=== PATIENT | female | born 1985 | race Caucasian/White ===

== ENCOUNTER 2021-10-20 02:05 | Emergency (ER) | payer OTHER ==
[~2021-10-20 02:05] MED LIST: CELEBREX100 MG PO; CYCLOBENZAPRINE10 MG PO
[2021-10-20] MEDS ORDERED: ENDOCET 5-3251 EACH PO (04:00)
[2021-10-20] MEDS ORDERED: IBU800 MG PO (04:00)
== END 2021-10-20 04:29 | disposition home or self-care (01) ==
LOC: ER1 02:05
DX: S16.1XXA Strain of muscle, fascia and tendon at neck level, initial encounter (principal); S39.012A Strain of muscle, fascia and tendon of lower back, initial encounter; S29.012A Strain of muscle and tendon of back wall of thorax, initial encounter; G44.309 Post-traumatic headache, unspecified, not intractable; V49.9XXA Car occupant (driver) (passenger) injured in unspecified traffic accident, initial encounter
CPT/HCPCS: 96374; 96375; 99283; J1885; J2405